=== PATIENT | female | born 1975 | race Caucasian/White ===

== ENCOUNTER → 2017-10-18 | Day surgery (SDC) | payer OTHER ==
--- NOTE | 2017-10-18 14:10 | OP ---
DATE OF OPERATION: 10/18/2017 PREOPERATIVE DIAGNOSIS: Right breast mass, 12:30, 4 cm from the nipple. POSTOPERATIVE DIAGNOSIS: Right breast mass, 12:30, 4 cm from the nipple. PROCEDURE: Right ultrasound-guided core biopsy with clip placement. ANESTHESIA: Local. ATTENDING SURGEON: Funmi House MD ESTIMATED BLOOD LOSS: Minimal. COMPLICATIONS: None. DESCRIPTION OF PROCEDURE: Patient was made aware of the risks and benefits of the procedure and consented. She was placed in a supine position. Under sterile conditions with 1% lidocaine for local anesthesia, a small severino was made in the skin. Using a 13-gauge suction biopsy device from inferolateral approach, under ultrasound guidance, multiple cores were obtained and submitted to Pathology. Likewise, under ultrasound guidance, a bow-tie clip was placed into the biopsy region. Well tolerated by patient. Steri-Strip and a sterile bandage were applied. Patient was sent then to Postprocedure Mammogram. We will contact patient with the results. FUNMI HOUSE M.D. [id number]
--- NOTE | 2017-10-19 17:12 | PATH ---
Surgical Pathology Report Patient Name: DIANA ESTEVEZ [facility]. Rec. #: [id number] /Age/Gender: 1975 (Age: 42) / F Account: [id number] Location: [facility] Taken: 10/18/2017 Received: 10/18/2017 Reported: 10/19/2017 Physicians: Funmi House M.D. Specimen(s) Received RIGHT BREAST CORE BIOPSY 12:30, 4CM FN Clinical History Nonpalpable lesion Ultrasound findings: Probably benign Final Diagnosis BREAST, RIGHT, 12:30, 4 CM FN., CORE BIOPSY: FIBROEPITHELIAL LESION (SEE NOTE). Note: This fibroepithelial lesion shows mild increase in stromal cellularity with mild stromal cellular atypia and rare stromal mitoses. 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 Complete excision of the lesion is recommended for definitive classification. Electronically Signed Carito Jones M.D. Gross Description Received in formalin labeled "right breast biopsy 12:30, 4 cmfn," are 8 harris-yellow, cylindrical portions of fibroadipose tissue ranging from 0.8-2.2 cm in length and averaging 0.2 cm in diameter. The specimens are submitted in toto in one cassette. Time to formalin fixation: < 1 minute Total formalin fixation time: Approximately 10 hours. 10/18/201710/18/2017
== END | disposition home or self-care (01) ==
LOC: FRADUS-SUR 12:45
PROVIDERS: ATTEND Surgery Surgical Oncology
PROC: 0HBT3ZX Excision of Right Breast, Percutaneous Approach, Diagnostic (ICD-10-PCS; principal; 2017-10-18)
DX: D24.1 Benign neoplasm of right breast (principal); N63.12 Unspecified lump in the right breast, upper inner quadrant
CPT/HCPCS: 19083; 77065-TC; 88305-TC

== ENCOUNTER 2017-10-25 07:06 | Day surgery (SDC) | payer OTHER ==
[2017-10-21 14:50] VITALS: BMI 19.7
--- NOTE | 2017-10-21 14:54 | HP ---
Admitting History and Physical - Primary Care Physician PCP: Funmi House - Admission Chief Complaint: Right breast phyllodes tumor History of Present Illness: 42 year old premnapausal female with family H/O breast cancer who noted right upper inner quadrant mass. mammogram was unremarkable and US showed new right breast mass at the 12:00 to 1:00 position Birad 4. Right US guided core biopsy at 2"30 showed fibroepithelial lesion with atypia. History Source: Patient Limitations to Obtaining History: No Limitations - Past Medical History Gastrointestinal: Yes: GERD - Smoking History Smoking history: Never smoked Have you smoked in the past 12 months: No - Alcohol/Substance Use Hx Alcohol Use: Yes (2 per week) Home Medications - Allergies Allergies/Adverse Reactions: Allergies Allergy/AdvReac Type Severity Reaction Status Date / Time codeine Allergy Rash Verified 10/21/17 14:46 Penicillins Allergy Rash Verified 10/21/17 14:46 - Home Medications Home Medications: Ambulatory Orders NK [No Known Home Medication] 10/21/17 Family Disease History - Family Disease History Family Disease History: CA: Mother (breast ca) Other Family History: mat aunt pancreatic ca 69 Physical Examination Constitutional: Yes: Well Nourished Breast(s): Yes: Other (Breasts are diffusely nodular and dense right breast at 12:00 N5 is a 1.0 cm indiscrete nudularity . 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
[2017-10-25] MEDS ORDERED: LIDOCAINE HCL 1%, 10 MG/ML (20ML VIAL) ONE (07:23)
[2017-10-25] MEDS ORDERED: BUPIVACAINE HCL 0.25% 125 MG/50 ML VIAL ONE (07:24)
[2017-10-25] MEDS ORDERED: ONDANSETRON 4 MG/2 ML VIAL IVPUSH PRN (08:43)
[2017-10-25] MEDS ORDERED: KETOROLAC TROMETHAMINE 30 MG/1 ML VIAL IVPUSH PRN (08:43)
[2017-10-25] MEDS ORDERED: DEXTROSE 5%-0.45% SALINE 1,000 ML IV SCH (08:45)
[2017-10-25] MEDS ORDERED: GUM MASTIC/STORAX/MSAL/ALCOHOL 1 DRP DROPSBTL MC ONE (09:36)
[2017-10-25 10:39] VITALS: BP 106/52; PULSE 63; TEMP 98
--- NOTE | 2017-10-25 11:08 | OP ---
DATE OF OPERATION: 10/25/2017 PREOPERATIVE DIAGNOSIS: Right breast phyllodes tumor. POSTOPERATIVE DIAGNOSIS: Right breast phyllodes tumor. PROCEDURE: Right breast intraoperative ultrasound localization and partial mastectomy. ANESTHESIA: IV sedation with local. ATTENDING SURGEON: Terri House MD STRUCTURAL ANALYSIS ENGINEER: ESTRELLA Lyon ESTIMATED BLOOD LOSS: Minimal. COMPLICATIONS: None. DESCRIPTION OF PROCEDURE: Patient was made aware of the risks and benefits of the procedure and consented. Patient was placed in a supine position on the operating room table, and after IV sedation was administered, the operative site was prepped and draped in the usual sterile fashion. Local anesthesia was administered with a 1:1 mixture of 1% lidocaine and 0.25% bupivacaine without epinephrine. Using intraoperative ultrasound, the right breast mass at 12 o'clock, 5 cm from the nipple, was localized, and a 22-gauge spinal needle was placed percutaneously into the mass. A curvilinear para-areolar incision was made at approximately 12 o'clock. Using electrocautery, thick skin flaps were made to the needle. Tissues around the needle were then grasped and sharply excised and submitted with a short suture superior, long suture lateral. Specimen radiograph confirmed the presence of the index lesion and clip. The wound was copiously irrigated with normal saline. Hemostasis maintained by electrocautery. Palpation of the wound showed no other nodularities. The wound was then closed with deep 3-0 Vicryl, followed by a running subcuticular 4-0 Monocryl. Steri-Strips and a sterile bandage were then applied. The patient, having tolerated the procedure well, was transferred to the recovery room in excellent condition. TERRI HOUSE M.D. [id number]
[2017-10-25] MEDS ORDERED: ACETAMINOPHEN 325 MG TABLET (FP) PO PRN (11:11)
[2017-10-25] MEDS ORDERED: oxyCODONE HCL 5 MG TABLET PO PRN ×2 (11:11)
[2017-10-25] MEDS ORDERED: LACTATED RINGERS SOLUTION 1,000 ML IV SCH (11:15)
--- NOTE | 2017-10-28 10:19 | PATH ---
Surgical Pathology Report Patient Name: DIANA ESTEVEZ [facility]. Rec. #: [id number] /Age/Gender: 1975 (Age: 42) / F Account: [id number] Location: REPLACED BY [facility] Taken: 10/25/2017 Received: 10/25/2017 Reported: 10/28/2017 Physicians: Funmi House M.D. Specimen(s) Received RIGHT BREAST WIDE EXCISION Clinical History Rt breast mass Final Diagnosis BREAST, RIGHT, WIDE EXCISION: BENIGN BREAST TISSUE SHOWING CELLULAR FIBROADENOMA. PRIOR BIOPSY SITE CHANGES ARE PRESENT. Electronically Signed Carito Jones M.D. Gross Description Received in formalin, labeled "right breast wide excision," is a 2.7 x 1.8 x 1.5 cm. harris-yellow, irregular, portion of fibroadipose tissue. There is no needle localization wire present. There is a short suture marking the superior aspect and a long suture marking the lateral aspect, per the surgeon. There is no skin present. The specimen is inked as follows: superior and lateral blue; inferior green; medial yellow; anterior red; deep black. The specimen is serially sectioned from superior to inferior. Sectioning reveals diffuse dense, white, firm fibrous tissue. The specimen is entirely and sequentially submitted in 7 cassettes with superior margin in cassette 1 and inferior margin in cassette 7. Time to formalin fixation: 12 minutes Total formalin fixation time: Approximately 32 hours. 10/26/2017 [facility]10/26/2017
== END 2017-10-25 11:10 | disposition home or self-care (01) ==
LOC: FASU 07:06
PROVIDERS: ATTEND Surgery Surgical Oncology
PROC: 0HBT0ZZ Excision of Right Breast, Open Approach (ICD-10-PCS; principal; 2017-10-25 09:03)
DX: D48.61 Neoplasm of uncertain behavior of right breast (principal)
CPT/HCPCS: 88307-TC